=== PATIENT | male | born 1975 | race Caucasian/White ===

== ENCOUNTER 2019-01-26 08:26 | Outpatient (CLI) | payer BC ==
[2019-01-26 10:03] LABS: Hemoglobin 15.4 g/dL (14.0-18.0); Mean Corpuscular HGB CONC 31.9 g/dL (32.0-36.0); Mean Corpuscular Hemoglobin 28.9 pg (27.0-31.0); Mean Corpuscular Volume 90.6 fL (78.0-98.0); Mean Platelet Volume 7.2 fL (7.4-10.4); Platelet Count 243 thou/uL (130-400); RBC Distribution Width 12.2 % (11.5-14.5); Red Blood Cell (RBC) Count 5.33 mill/uL (4.70-6.10); White Blood Cell (WBC) Count 4.6 thou/uL (4.8-10.8)
[2019-01-26 10:08] LABS: INR-International Normal Ratio 0.9; PTT 29.1 SEC (22.9-36.1); Prothrombin Time 12.1 SEC (12.0-14.7)
[2019-01-26 10:15] LABS: Anion Gap 10 mmol/L (10-20); BUN (Urea Nitrogen) 17 mg/dL (8.9-20.6); Calc. Creatinine Clearance 0 mL/min (70-130); Calcium 9.1 mg/dL (7.8-10.44); Carbon Dioxide 28 mmol/L (22-29); Chloride 107 mmol/L (98-107); Estimated GFR-MDRD Greater than 90; Glucose 78 mg/dL (70-105); Potassium 4.9 mmol/L (3.5-5.1); Sodium 140 mmol/L (136-145)
== END 2019-01-26 08:27 | disposition home or self-care (01) ==
LOC: LABBT 08:26
PROVIDERS: ATTEND Surgery
DX: Z01.818 Encounter for other preprocedural examination (principal); M51.16 Intervertebral disc disorders with radiculopathy, lumbar region; M48.061 Spinal stenosis, lumbar region without neurogenic claudication
CPT/HCPCS: 80048; 85027; 85610; 85730; 93005; 93010

== ENCOUNTER 2019-01-29 07:33 | Day surgery (SDC) | payer BC ==
[2019-01-26 08:43] VITALS: BMI 34.0
[2019-01-29] MEDS ORDERED: Thrombin 5000 UNITS/5 ML VIAL ONE (08:48)
[2019-01-29] MEDS ORDERED: Sodium Chloride 0.9% 10 ML ONE (08:48)
[2019-01-29] MEDS ORDERED: Fentanyl 100 MCG/2 ML VIAL ONE ×7 (09:28→17:40)
[2019-01-29] MEDS ORDERED: SUGAMMADEX SODIUM 500 MG/5 ML VIAL ONE (09:32)
[2019-01-29] MEDS ORDERED: SUGAMMADEX SODIUM 200 MG/2 ML VIAL ONE (09:32)
[2019-01-29] MEDS ORDERED: HYDROmorphone 2 MG/ML VIAL SLOW IVP PRN (10:32)
[2019-01-29] MEDS ORDERED: Meperidine HCl/PF 25 MG/ML VIAL SLOW IVP PRN (10:32)
[2019-01-29] MEDS ORDERED: Ondansetron HCl/PF 4 MG/2 ML Vial IVP PRN (10:32)
[2019-01-29] MEDS ORDERED: Promethazine HCl 25 MG/ML VIAL SLOW IVP PRN (10:32)
[2019-01-29] MEDS ORDERED: PACU-Morphine 4MG/ML VIAL SLOW IVP PRN (10:32)
[2019-01-29] MEDS ORDERED: tiZANidine HCl 4 MG TAB PO PRN (12:46)
[2019-01-29] MEDS ORDERED: HYDROcodone/Acetaminophen 7.5/325 mg Tablet PO PRN (12:46)
[2019-01-29] MEDS ORDERED: Mag-Al 1200 mg/1200 mg/30 ML UDCUP PO PRN (12:46)
[2019-01-29] MEDS ORDERED: Milk Of Magnesia 30 ML UDCUP PO PRN (12:46)
[2019-01-29] MEDS ORDERED: Acetaminophen/Codeine 30-300mg Tablet PO PRN (12:46)
[2019-01-29] MEDS ORDERED: Morphine 2 MG/ML SYRINGE SLOW IVP PRN (12:46)
[2019-01-29] MEDS ORDERED: Fleet Enema 133 ML BOT PR PRN (12:46)
[2019-01-29] MEDS ORDERED: Ondansetron PF 4 MG/2 ML Vial IVP PRN (12:46)
[2019-01-29] MEDS ORDERED: Bisacodyl 10 MG SUPP PR PRN (12:46)
[2019-01-29] MEDS ORDERED: Gabapentin 300 MG CAP PO PRN (12:50)
[2019-01-29] MEDS ORDERED: Promethazine HCl 25 MG/ML VIAL ONE (12:52)
[2019-01-29] MEDS ORDERED: PROPOFOL 200 MG/20 ML VIAL ONE (12:58)
[2019-01-29] MEDS ORDERED: Ketorolac Tromethamine 30 MG/ML VIAL ONE (12:58)
[2019-01-29] MEDS ORDERED: Rocuronium Bromide 10 MG/ML (10ML VIAL) ONE (12:58)
[2019-01-29] MEDS ORDERED: Ondansetron PF 4 MG/2 ML Vial ONE ×2 (12:58→13:52)
[2019-01-29] MEDS ORDERED: Lidocaine 1% PF 5 ML VIAL ONE (12:58)
[2019-01-29] MEDS ORDERED: ePHEDrine/0.9% NaCl/PF SYRINGE 50 mg/10 ml ONE (12:58)
[2019-01-29] MEDS ORDERED: Vecuronium 10 MG VIAL ONE (12:58)
[2019-01-29] MEDS ORDERED: INSULIN ASPART SC SCH (13:00)
[2019-01-29] MEDS ORDERED: Midazolam HCl 2 mg/2 ml Vial ONE (14:20)
[2019-01-29] MEDS ORDERED: HYDROmorphone 0.5 MG/0.5 ML SYRINGE ONE (17:30)
[2019-01-29] MEDS: CEFAZOLIN 2 GM in Premix Bag 1 BAG IVPB SCH (19:41)
[2019-01-29] MEDS ORDERED: Dextrose 50% Abboject 50 ML SYRINGE SLOW IVP PRN (19:53)
[2019-01-29] MEDS ORDERED: Dextrose 5% in Water 1,000 ML IV PRN (19:53)
[2019-01-29] MEDS: HumaLOG 300 UNITS/3 ML VIAL SC PRN ×2 (20:58→22:47)
--- NOTE | 2019-01-29 21:49 | PDOC.HHP ---
Hospitalist HPI - History of Present Illness Medical Management - post op for Laminectomy History of Present Illness: Lumbar pain with radiculopathy intermittently for several years, worse in the last several months Hospitalist ROS - Review of Systems Constitutional: reports: malaise Eyes: denies: pain, vision change, conjunctivae inflammation, eyelid inflammation, redness, other ENT: denies: ear pain, ear discharge, nose pain, nose discharge, nose congestion , mouth pain, mouth swelling, throat pain, throat swelling, other Respiratory: denies: cough, dry, shortness of breath, hemoptysis, SOB with excertion, pleuritic pain, sputum, wheezing, other Cardiovascular: denies: chest pain, palpitations, orthopnea, paroxysmal noc. dyspnea, edema, light headedness, other Gastrointestinal: denies: nausea, vomiting, abdominal pain, diarrhea, constipation, melena, hematochezia, other Genitourinary: denies: dysuria, frequency, incontinence, hematuria, retention, other Musculoskeletal: reports: other (history of lumbar pain with radiation to legs, now none) Skin: denies: rash, lesions, erin, bruising, other Neurological: denies: weakness, numbness, incoordination, change in speech, confusion, seizures, other - Medication Medications: Active Medications Generic Name Dose Route Start Last Admin Trade Name Freq PRN Reason Stop Dose Admin Cefazolin Sodium/Dextrose 2 gm 50 mls @ 100 mls/hr 01/29/19 17:00 01/29/19 19 :41 / Device IVPB 01/30/19 01:29 Not Given 0100,0900,1700 [facility] Insulin Human Lispro 0 units 01/29/19 19:53 01/29/19 20:58 Humalog SC 6 units .MILD SLIDING SCALE PRN Administration Mild Correctional Scale Tizanidine HCl 4 mg 01/29/19 12:46 01/29/19 19:41 Zanaflex PO 4 mg TIDPRN PRN Administration Muscle Spasm Hospitalist History - Past Medical History Cardiac: reports: no pertinent history Pulmonary: reports: no pertinent history [employer]: reports: Peripheral neuropathy Gastrointestinal: reports: GERD Heme/Onc: reports: no pertinent history Psych: reports: Depression Musculoskeletal: reports: Chronic low back pain Infectious Disease: reports: no pertinent history Renal/: reports: no pertinent history Endocrine: reports: Diabetes - Past Surgical History Other Surgical History: Left foot repair x5, gastric sleeve, lumbar surgery - Social History Smoking Status: Never smoker Alcohol: reports: None Drugs: reports: none Living Situation: With Family - Exam General - other findings: Generally feels weak Eye: PERRL ENT: normocephalic atraumatic Neck: supple, no lymphadenopathy Heart: RRR, normal peripheral pulses Respiratory: CTAB, normal chest expansion Gastrointestinal: soft, non-tender Extremities: no cyanosis Skin: normal turgor Neurological: cranial nerve grossly intact, normal sensation to touch Musculoskeletal: normal tone Psychiatric: normal affect, A&O x 3 Hospitalist H&P A/P - Problem (1) Lumbar back pain Code(s): M54.5 - LOW BACK PAIN Status: Chronic (2) Radiculopathy of lumbar region Code(s): M54.16 - RADICULOPATHY, LUMBAR REGION Status: Chronic (3) Chronic GERD Code(s): K21.9 - GASTRO-ESOPHAGEAL REFLUX DISEASE WITHOUT ESOPHAGITIS Status: Chronic Assessment and Plan: protonix has been restarted (4) Depression Code(s): F32.9 - MAJOR DEPRESSIVE DISORDER, SINGLE EPISODE, UNSPECIFIED Status : Chronic Assessment and Plan: Home med, cymbalta restarted (5) Diabetes type I Status: Chronic - Plan Plan: Typically uses insulin pump for coverage but pump is out of insulin so we will cover with Sliding Scale humalog and ACHS accuchecks Surgery team has started home medication GI and DVT preventative started Thank you for the consult, we will follow with you
[2019-01-29] MEDS: Sodium Chloride 0.9% 1,000 ML IV SCH (21:53)
[2019-01-29] MEDS ORDERED: Sodium Chloride 0.9% 1,000 ML IV SCH ×2 (22:00→22:45)
[2019-01-30] MEDS: CEFAZOLIN 2 GM in Premix Bag 1 BAG IVPB SCH (00:33)
[2019-01-30] MEDS: HumaLOG 300 UNITS/3 ML VIAL SC PRN ×2 (02:38→06:59)
[2019-01-30] MEDS: traMADol HCl 50 MG TAB PO PRN ×2 (04:28→11:29)
[2019-01-30] MEDS: Acetaminophen 325 MG TAB PO PRN ×2 (04:28→11:29)
[2019-01-30 05:46] LABS: #Eosinphils 0.1 thou/uL (0.0-0.7); #Lymphocytes 1.8 thou/uL (1.20-3.40); #Monocytes 0.9 thou/uL (0.11-0.59); #Neutrophils 5.5 thou/uL (1.40-6.50); %Basophils 0.4 % (0.0-1.0); %Eosinophils 0.6 % (0.0-10.0); %Lymphocytes 22.2 % (21.0-51.0); %Monocytes 10.3 % (0.0-10.0); %Neutrophils 66.5 % (42.0-75.0); Hemoglobin 12.1 g/dL (14.0-18.0); Mean Corpuscular HGB CONC 32.7 g/dL (32.0-36.0); Mean Corpuscular Hemoglobin 29.5 pg (27.0-31.0); Mean Corpuscular Volume 90.4 fL (78.0-98.0); Mean Platelet Volume 7.1 fL (7.4-10.4); Platelet Count 200 thou/uL (130-400); RBC Distribution Width 12.4 % (11.5-14.5); Red Blood Cell (RBC) Count 4.09 mill/uL (4.70-6.10); White Blood Cell (WBC) Count 8.2 thou/uL (4.8-10.8)
[2019-01-30 06:22] LABS: Anion Gap 7 mmol/L (10-20); BUN (Urea Nitrogen) 18 mg/dL (8.9-20.6); Calc. Creatinine Clearance 159 mL/min (70-130); Calcium 7.8 mg/dL (7.8-10.44); Carbon Dioxide 27 mmol/L (22-29); Chloride 109 mmol/L (98-107); Estimated GFR-MDRD 81; Glucose 303 mg/dL (70-105); Sodium 139 mmol/L (136-145)
[2019-01-30] MEDS: Sodium Chloride 0.9% 1,000 ML IV SCH ×2 (08:31→14:37)
[2019-01-30] MEDS ORDERED: DULoxetine 30 MG CAP PO SCH (09:00)
[2019-01-30] MEDS ORDERED: Loratadine 10 MG TAB PO SCH (09:00)
[2019-01-30] MEDS ORDERED: HumaLOG 300 UNITS/3 ML VIAL SC PRN (10:05)
[2019-01-30] MEDS ORDERED: Insulin Glargine 20 UNITS in Pre-Filled Syringe 1 EACH SC SCH (10:15)
--- NOTE | 2019-01-30 12:22 | OP ---
DATE OF PROCEDURE: 01/29/2019 LOCATION: OR 12. WOUND CLASSIFICATION: Type 1 wound. ROLL UP HELPER: Jesus Espinoza PA-C PREPROCEDURE DIAGNOSIS: Recurrent disk extrusion at L4-L5 with right greater than left lower extremity pain. POSTPROCEDURE DIAGNOSIS: Recurrent disk extrusion at L4-L5 with right greater than left lower extremity pain. PROCEDURES PERFORMED: 1. Bilateral revision L4-L5 hemilaminotomy, foraminotomy, and diskectomy. 2. Use of operative microscope for microdissection. 3. A modifier 50 should be added to this surgery as the surgery was bilateral in nature. DESCRIPTION OF PROCEDURE: After informed consent was obtained from the patient, the patient was brought to the OR. Proper patient, pause, and identification were carried out. He was placed under excellent endotracheal anesthesia and positioned prone on the OR table. All appropriate points were padded. We identified the L4-L5 dorsal spines in the prior linear incision. This region was sterilely cleansed, prepared, and draped. Proper patient, pause, and identification were carried out. The wound was then opened, and the L4-L5 dorsal spines and lamina were exposed. Localization film confirmed area of interest. I then performed L4-L5 bilateral revision hemilaminotomy, foraminotomy, and diskectomy. We used the microscope working with our traversing right L4 and underneath the exiting right L5 nerve root to remove multiple disk fragments. We had excellent decompression of common dural tube and nerve roots. Copious irrigation occurred throughout as did maximizing hemostasis. The wound was then closed in anatomic layers following sprinkling of vancomycin powder. The patient then emerged from anesthesia. Job ID: [id number]
--- NOTE | 2019-01-30 12:55 | PRG ---
DATE OF SERVICE: 01/30/2019 SUBJECTIVE: Mr. Perez is postoperative day #1 from bilateral revision of L4-L5 hemilaminotomy, foraminotomy, and diskectomy from the right side. He remains with moderate dorsiflexor weakness on the right side, but reports improvement in his sensory abnormality and pain and paresthesias. He is mobilizing. We have again discussed continued weight loss to minimize his chance of recurrence as he has herniated twice at the L4-L5 segment and that the chance of fusion would be high should he herniate again at that segment. He is doing well with no wound issues and otherwise is neurologically intact. We will plan for dismissal. He has had some fever, this is related to atelectasis. Job ID: [id number]
[2019-01-30 12:58] VITALS: BP 122/78; TEMP 100.1
== END 2019-01-30 16:31 | disposition home or self-care (01) ==
LOC: SDC 07:33 → SJJU 12:50 → SDC 01-30 16:31
PROVIDERS: ATTEND Surgery
PROC: 0ST20ZZ Resection of Lumbar Vertebral Disc, Open Approach (ICD-10-PCS; principal; 2019-01-29)
PROC: 01NB0ZZ Release Lumbar Nerve, Open Approach (ICD-10-PCS; principal; 2019-01-29)
DX: M51.16 Intervertebral disc disorders with radiculopathy, lumbar region (principal); K21.9 Gastro-esophageal reflux disease without esophagitis; F32.9 Major depressive disorder, single episode, unspecified; E10.42 Type 1 diabetes mellitus with diabetic polyneuropathy; E66.01 Morbid (severe) obesity due to excess calories; Z68.34 Body mass index [BMI] 34.0-34.9, adult; Z79.899 Other long term (current) drug therapy; Z88.1 Allergy status to other antibiotic agents; Z98.84 Bariatric surgery status; Z98.890 Other specified postprocedural states
CPT/HCPCS: 36415; 36416; 76000; 80048; 85025; J0131; J0690; J1170; J1885; J2001; J2250; J2405; J2550; J2704; J3010; J3370; J3490

== ENCOUNTER 2019-09-18 12:14 | Outpatient (CLI) | payer OTHER ==
--- NOTE | 2019-09-18 15:57 | RAD ---
CERVICAL SPINE 6 VIEWS: INDICATION: Neck pain and headache. FINDINGS: Cervical vertebrae maintain normal height and alignment. Disk spaces are preserved. Posterior eleme nts are normally aligned. Alignment appears normally preserved with flexion and extension. IMPRESSION: Unremarkable cervical spine. POS: AH
--- NOTE | 2019-09-18 16:09 | MRI ---
MRI CERVICAL SPINE WITHOUT CONTRAST: 09/18/19 INDICATIONS: Neck pain. Bilateral radiculopathy. Headache. FINDINGS: Cervical vertebrae maintain normal height and alignment. Disc spaces are preserved. Vertebral body si gnal is normal. C2-3: No significant abnormality. C3-4: No significant abnormality. C4-5: Mild posterior disc bulge flattens the thecal sac. The anterior subarachnoid space is preserved . No central canal or foraminal stenosis. C5-6: Mild posterior disc bulge flattens the thecal sac and mildly effaces the anterior subarachnoid space. No cord impingement. No central canal or foraminal stenosis. C6-7: Mild diffuse disc bulge flattens the thecal sac and mildly effaces the anterior subarachnoid sp colton. No cord impingement. No evidence of central canal or foraminal stenosis. C7-T1: No significant abnormality. Cervical cord signal is normal. IMPRESSION: Mild diffuse disc bulge seen at C4-5, C5-6 and C6-7 as described. POS: AH
== END 2019-09-18 12:15 | disposition home or self-care (01) ==
LOC: TBSIIMAG 12:14 → MERGE 12:45
PROVIDERS: ATTEND Surgery
DX: M54.2 Cervicalgia (principal); R51 Headache; M50.821 Other cervical disc disorders at C4-C5 level
CPT/HCPCS: 72050; 72141